=== PATIENT | male | born 1980 | race Caucasian/White ===

== ENCOUNTER 2018-05-15 02:25 | Emergency (ER) | payer OTHER ==
[~2018-05-15] VITALS: Ht 175.3 cm; Wt 65.8 kg
[2018-05-15 02:40] VITALS: BP 138/61
[2018-05-15] MEDS ORDERED: ACYCLOVIR800 MG ORAL (02:57)
[2018-05-15] MEDS ORDERED: CLINDAMYCIN HC300 MG ORAL (02:57)
[2018-05-15] MEDS ORDERED: CEPHALEXIN500 MG ORAL (02:57)
[2018-05-15] MEDS ORDERED: ACETAMINOPHEN-1 EAC1 ORAL (02:57)
--- NOTE | 2018-05-15 04:09 | Emergency Room Report ---
History of Present Illness General Chief Complaint: Pain Source: Patient Present Illness HPI 37-year-old male presents ED complaining of rectal pain 10 days. States that he believes he has anal warts. Used some condylax prescribed to his brother but states that pain is not resolved. States he had unprotected anal intercourse approximately 2 weeks ago. Pain is throbbing, 9 out of 10, nonradiating. Notes body aches and chills. Afebrile. No other aggravating relieving factors. Denies any other associated symptoms Allergies: Coded Allergies: IBUPROFEN (Verified Allergy, Severe, swelling throat, 05/15/18) SULFUR (Verified Allergy, Mild, rash, 05/15/18) Patient History Past Medical History: none Past Surgical History: none Pertinent Family History: none Social History: Denies: smoking, alcohol use, drug use Immunizations: UTD Reviewed Nursing Documentation: PMH: Agreed; PSxH: Agreed Nursing Documentation-PMH Past Medical History: No Stated History Review of Systems All Other Systems: negative except mentioned in HPI Physical Exam Vital Signs Date Time Temp Pulse Resp B/P (MAP) Pulse Ox O2 Delivery O2 Flow Rate FiO2 05/15/18 02:30 99.1 114 18 141/61 96 Room Air 99.1 Sp02 EP Interpretation: reviewed, normal General Appearance: no apparent distress, alert, GCS 15, non-toxic Head: normocephalic Eyes: bilateral eye normal inspection, bilateral eye PERRL ENT: normal ENT inspection Neck: normal inspection Respiratory: normal inspection Cardiovascular #1: normal inspection Gastrointestinal: normal bowel sounds, non tender, soft, non-distended, no guarding, no rebound Rectal: tenderness - induration/erythema L buttock. no fluctuance., other - warts around rectum Genitourinary: no CVA tenderness Musculoskeletal: normal inspection Neurologic: alert, oriented x3, responsive, motor strength/tone normal, sensory intact, speech normal Psychiatric: normal inspection Skin: other - anal warts Lymphatic: normal inspection Medical Decision Making Diagnostic Impression: Primary Impression: Cellulitis Qualified Codes: L03.317 - Cellulitis of buttock Additional Impression: Viral warts Qualified Codes: A63.0 - Anogenital (venereal) warts ER Course Hospital Course 37-year-old male presents to ED with rectal pain, h/o unprotected sex Differential diagnoses include: anal fissure, hemorrhoids, cellultiis Clinical course Patient placed on stretcher. After initial history, physical exam reveals a male in no acute distress. On exam there is swelling in erythema to the left buttock. No fluctuance or discharge noted. There is also evidence of anal warts in the area. Discussed findings with the patient. I offered option for I&D the patient appeared very hesitant. Patient states he would prefer to try medical management first with antibiotics. Recommended sitz baths, antibiotics and antiviral medications. Close follow-up with PMD. Diagnosis - cellulits, viral warts stable and discharged to home with prescription for Keflex, clindamycin, acyclovir, Tylenol #3. sitz baths. Instructed to followup with PMD. Instructed return to ED if symptoms recur or worsen Last Vital Signs Date Time Temp Pulse Resp B/P (MAP) Pulse Ox O2 Delivery O2 Flow Rate FiO2 05/15/18 02:30 99.1 114 18 141/61 96 Room Air 99.1 Status: improved Disposition: HOME, SELF-CARE Condition: Stable Scripts Acetaminophen With Codeine (T#3) (TYLENOL #3 TAB*) Y Tab 1 TAB ORAL Q8H PRN for For Pain, #20 TAB Prov: Fili Mak MD 05/15/18 Acyclovir* (ZOVIRAX*) 800 Mg Tablet 800 MG ORAL FIVE TIMES A DAY for 7 Days, TAB Prov: Fili Mak MD 05/15/18 Clindamycin Hcl (CLINDAMYCIN HCL) 300 Mg Capsule 300 MG ORAL THREE TIMES A DAY, #21 CAP Prov: Fili Mak MD 05/15/18 Cephalexin* (KEFLEX*) 500 Mg Capsule 500 MG ORAL EVERY 6 HOURS, #28 CAP Prov: Fili Mak MD 05/15/18 Referrals: [facility],REFERRING (PCP) Patient Instructions: Abscess, [id number] Fili Mak MD May 15, 2018 04:09
[2018-05-15 04:29] VITALS: BP 141/61
== END 2018-05-15 03:05 | disposition home or self-care (01) ==
LOC: EMR 02:59
DX: L03.317 Cellulitis of buttock (principal); A63.0 Anogenital (venereal) warts; Z88.6 Allergy status to analgesic agent; Z88.2 Allergy status to sulfonamides
CPT/HCPCS: 99284